=== PATIENT | female | born 1950 | race Caucasian/White ===

== ENCOUNTER → 2016-12-09 | Outpatient (CLI) | payer MEDICARE, MEDICAID ==
[~2016-12-09] MED LIST: DEXT15DR5 EACHEYE; DOCU-150 PO; FURO40TA5 PO; METO50TA5 PO; OMEP40CA34 PO; POTA-79 PO; SIMV20TA6 PO
== END | disposition home or self-care (01) ==
LOC: RAD 11:48
PROVIDERS: ATTEND Specialist
DX: R05 Cough (principal)
CPT/HCPCS: 71020

== ENCOUNTER 2021-08-31 09:54 | Emergency (ER) | payer MEDICARE, MEDICAID ==
[~2021-08-31] VITALS: Ht 154.9 cm; Wt 77.0 kg
[~2021-08-31 09:54] MED LIST changes: +METO-539 PO; -METO50TA5 PO; +OMEP40CA20 PO; -OMEP40CA34 PO; +SIMV-43 PO; -SIMV20TA6 PO
[2021-08-31 10:02] VITALS: BP 140/62
[2021-08-31] MEDS ORDERED: CIPR2.5D13 RIGHTEYE (10:44)
== END 2021-08-31 11:03 | disposition home or self-care (01) ==
LOC: ER 09:54
DX: H10.31 Unspecified acute conjunctivitis, right eye (principal); E78.00 Pure hypercholesterolemia, unspecified; I10 Essential (primary) hypertension
CPT/HCPCS: 99283